=== PATIENT | male | born 1965 | race Caucasian/White ===

== ENCOUNTER 2021-02-26 15:50 | Inpatient (IN) | payer OTHER ==
[2021-02-26 16:11] LABS: Glucose,Whole Blood 154 mg/dL (75-99)
[2021-02-26] MEDS ORDERED: DEXAMETHASONE SOD PHOSPHATE 10 MG/ML 1 ML VIAL IV STA ×2 (16:11→16:12)
[2021-02-26 16:12] LABS: ABG Base Excess -19.5 mmol/L; ABG PCO2 26 mmHg (35-45); ABG PO2 62 mmHg (83-108); ABG TCO2 10 mmol/L (19-24); Allen Test Performed? Yes
[2021-02-26 16:13] LABS: ABG PH 7.16 (7.35-7.45)
[2021-02-26 16:14] LABS: ABG HCO3 9 mmol/L (21-25)
[2021-02-26] MEDS ORDERED: ALBUTEROL NEBULIZED 2.5 MG/3 ML INHALATION STA (16:19)
--- NOTE | 2021-02-26 16:26 | XR ---
EXAMINATION TYPE: XR chest 1V portable DATE OF EXAM: 02/26/2021 COMPARISON: NONE HISTORY: Altered mental status. TECHNIQUE: Single frontal view of the chest is obtained. FINDINGS: There is right greater than left diffuse patchy opacities. There is relative sparing of th e left upper lung. No pleural effusion, or pneumothorax seen. The cardiac silhouette size is within normal limits. The osseous structures are intact. IMPRESSION: Diffuse infiltrates.
[2021-02-26 16:31] LABS: Albumin 3.6 g/dL (3.5-5.0); Calcium 8.5 mg/dL (8.4-10.2); Magnesium 2.9 mg/dL (1.6-2.3); Potassium 4.1 mmol/L (3.5-5.1); Total Bilirubin 3.9 mg/dL (0.2-1.3); Total Protein 6.9 g/dL (6.3-8.2)
[2021-02-26] MEDS ORDERED: NOREPINEPHRINE 32 MG in SODIUM CHLORIDE 0.9% 218 ML IV ONE (16:42)
[2021-02-26 16:45] LABS: MCH 29.6 pg (25.0-35.0); MCV 86.9 fL (80.0-100.0); Mean Platelet Volume 9.1; Platelet Count 497 k/uL (150-450); RBC 5.41 m/uL (4.30-5.90); RDW 13.8 % (11.5-15.5); WBC 2.9 k/uL (3.8-10.6)
[2021-02-26] MEDS ORDERED: ETOMIDATE 2 MG/ML 10 ML VIAL IVP STA (16:56)
[2021-02-26] MEDS ORDERED: ROCURONIUM 10 MG/ML (5 ML VIAL) IV STA (16:57)
[2021-02-26 17:11] LABS: Band Neutrophils % 15 %; Lymphocytes # (M) 0.52 k/uL (1.0-4.8); Metamyelocytes # (M) 0.09 k/uL (0); Metamyelocytes % 3 %; Monocytes # (M) 0.09 k/uL (0-1.0); Neutrophils % (M) 61 %; Nucleated Red Blood Cells 0 /100 WBC (0-0); Rouleaux Present; Total Cells Counted 100
[2021-02-26 17:19] LABS: INR 1.1 (<1.2); Partial Thromboplastin Time 23.5 sec (22.0-30.0); Prothrombin Time 11.8 sec (9.0-12.0)
[2021-02-26] MEDS ORDERED: NALOXONE 0.4 MG/ML 1 ML VIAL IV PRN (17:50)
[2021-02-26] MEDS ORDERED: fentaNYL (PF) 50 MCG/ML 5 ML AMP IVP STA (18:03)
--- NOTE | 2021-02-26 18:05 | XR ---
EXAMINATION TYPE: XR chest 1V portable DATE OF EXAM: 02/26/2021 COMPARISON: Same day. HISTORY: Intubation and line placement. TECHNIQUE: Single frontal view of the chest is obtained. FINDINGS: There is placement of an endotracheal tube terminating 1.4 cm above the yumiko. There is a lso a nasogastric tube coursing below the diaphragm with tip not included in [id number]. There are unchanged right greater than left diffuse opacities. No pleural effusion, or pneumothorax seen. The cardiac silhouette size is stable. The osseous structures are intact. IMPRESSION: Status post support apparatus as above. Low-lying endotracheal tube. Otherwise no significant change.
[2021-02-26 18:22] LABS: Amphetamine Screen,Urine Not Detected (NotDetected); Barbiturate Screen,Urine Not Detected (NotDetected); Benzodiazepines Screen,Urine Not Detected (NotDetected); Cocaine Screen,Urine Not Detected (NotDetected); Methadone Screen, Urine Not Detected (NotDetected); Opiate Screen,Urine Not Detected (NotDetected); Oxycodone Screen, Urine Not Detected (NotDetected); Phencyclidine Screen,Urine Not Detected (NotDetected); Tricyclic Antidepressant,Urine Not Detected (NotDetected); Urn Cannabinoid Scrn Not Detected (NotDetected)
--- NOTE | 2021-02-26 18:25 | ED ---
General Adult HPI - General Chief complaint: Shortness of Breath Stated complaint: hypoxia Source: EMS, RN notes reviewed, old records reviewed Mode of arrival: EMS Limitations: altered mental status - History of Present Illness Initial comments: Patient is a 55-year-old male who presents emergency Department presents emergency Department. Brought in by EMS for shortness of breath. Patient is testing positive for COVID-19 on Sunday. It is currently Sunday. Per EMS, patient's history was primary and they through the patient's also has COVID-19. Patient has been having increased work of breathing over the last 1-2 days. Today he felt tired and was going to take a bath in the bathroom, when he states he laid down on the ground. This is where his found him. He was too weak to stand up so she called EMS. They specifically noted left-sided weakness. He was slurring his speech. Upon arrival, EMS noted that the patient was saturating low was extremity tachypneic. On CPAP, he was saturating in the low 70%'s. He was able to speak words. They brought him to the emergency department for further evaluation over concern for worsening COVID-19 infection versus possible stroke. Patient is unable to provide much information. He is breathing quickly. He states he is short of breath. Denies chest pain. States he feels generalized weak. Denies any sensory deficits. Denies any headache. His no other acute complaint at this time. He is in extreme respiratory distress at this time. - Related Data Home Medications Medication Instructions Recorded Confirmed Acetaminophen [Tylenol] 500 mg PO Q4-6H PRN 02/26/21 02/26/21 Ibuprofen [Motrin Ib] 800 mg PO Q8H PRN 02/26/21 02/26/21 Metoprolol Tartrate [Lopressor] 100 mg PO BID 02/26/21 02/26/21 Allergies Allergy/AdvReac Type Severity Reaction Status Date / Time No Known Allergies Allergy Verified 02/26/21 16:50 Review of Systems ROS Statement: Those systems with pertinent positive or pertinent negative responses have been documented in the HPI. Review of Systems: Difficult to obtain from patient but he is able to convey basic answers. CONST: Denies fever EYES: Denies blurry vision ENT: Denies nasal congestion C/V: Denies Chest pain RESP: Endorses shortness of breath GI: Denies abdominal pain : Denies dysuria SKIN: Denies rash. MSK: Denies joint pain. NEURO: Endorses fatigue ROS Other: All systems not noted in ROS Statement are negative. Past Medical History Additional Past Medical History / Comment(s): hypertension, covid History of Any Multi-Drug Resistant Organisms: Unobtainable Past Surgical History: Unable to Obtain Past Psychological History: No Psychological Hx Reported Smoking Status: Unknown if ever smoked Past Alcohol Use History: Unable to Obtain Past Drug Use History: Unable to Obtain General Exam - General Exam Comments Initial Comments: General: Appears in significant respiratory distress. HEAD: Normal with no signs of head trauma. EYES: PERRLA, EOMI, conjunctiva normal, no discharge. Pupils are 3 mm and equal bilaterally. ENT: Hearing grossly intact, normal oropharynx. Tracheas midline. RESPIRATORY: Patient has bilateral crackles and rhonchi. He is tachypneic. He has retractions. He is in significant respiratory distress. C/V: Cardiac with a regular rhythm. S1 and S2 auscultated. Peripheral pulses are 1+ and intact throughout. Patient is mottled appearance. ABD: Abd is soft, nontender, nondistended EXT: Normal range of motion, no obvious deformity SKIN: Patient is mottled on appearance. It is diffuse over all of his extremities, trunk, torso, head. NEURO: Alert and oriented 2. Patient appears to have left-sided upper extremity and lower extremity weakness. There is no facial droop that is ob vious. It is difficult to obtain a reliable neurological exam. Based on the left-sided weakness, NIH stroke scale is 4, 2 points each for some effort against gravity of the left upper and left lower extremity.Once again, neurological exam is difficult to obtain secondary to his current status. The left-sided weakness is in the obvious neurological deficit at this time. Limitations: altered mental status Course Vital Signs 02/26/21 02/26/21 02/26/21 15:55 15:56 16:22 Pulse Rate 130 H 130 H 135 H Pulse Rate [ 130 H Disposition Clerk ] Respiratory 46 H 40 H Rate Blood Pressure 120/58 120/58 O2 Sat by Pulse 48 L 48 L Oximetry 02/26/21 02/26/21 02/26/21 16:32 17:00 17:20 Pulse Rate 135 H 128 H 124 H Pulse Rate [ Disposition Clerk ] Respiratory 35 H 40 H Rate Blood Pressure 121/84 138/83 O2 Sat by Pulse 84 L 84 L Oximetry 02/26/21 02/26/21 02/26/21 17:37 18:01 19:01 Pulse Rate 133 H 130 H 184 H Pulse Rate [ Disposition Clerk ] Respiratory 32 H 32 H 32 H Rate Blood Pressure 104/66 152/83 97/71 O2 Sat by Pulse 76 L 83 L 58 L Oximetry 02/26/21 02/26/21 02/26/21 20:22 20:24 20:30 Pulse Rate 116 H 116 H 116 H Pulse Rate [ Disposition Clerk ] Respiratory 32 H 32 H 31 H Rate Blood Pressure 114/63 138/83 114/63 O2 Sat by Pulse 73 L 73 L 73 L Oximetry 02/26/21 20:40 Pulse Rate 115 H Pulse Rate [ Disposition Clerk ] Respiratory 25 H Rate Blood Pressure 93/66 O2 Sat by Pulse 73 L Oximetry Procedures - Procedures Initial comment: Synchronized cardioversion was also performed due to unstable atrial fibrillation and RVR is patient was hypoxic at that time. Patient was cardioverted at 100 J. Patient cardioverted successfully to sinus tachycardia. - ABG Interpretation Ph: 7.158 PCO2: 26 PO2: 62 Bicarbonate: 9.2 Interpretation: metabolic acidosis - Central Line Placement Left Femoral Consent Obtained: emergent situation Patient Placed on Monitor/Pulse Ox: Yes Prep: mask, gown, gloves Central Line Prep: Chlorhexidine scrub, sterile drapes applied Local Anesthesia Used: Lidocaine 1% Amount of Anesthesia Used (mls): 3 Ultrasound Used for Placement: Yes Central Line Lumen Inserted: triple Bloods Obtained for Lab: No Central Line Position: good blood return, all ports aspirated, flushed, capped, sutured in place with nylon Dressing Applied: Tegaderm Patient Tolerated Procedure: well Complications: none - Intubation Sedative: Etomidate Mg Given: 20 Paralytic: Rocuronium Mg Given: 100 Laryngoscope: other (Glydescope) Size: 4 ET Tube Size: 7.5 ET Tube Uncuffed: No (cuffed) Tube Secured Depth (cm): 25 Tube Secured Location: lips Tube Placement Confirmation: visualized tube passing through cords, equal breath sounds bilaterally, confirmation by capnometry Patient Tolerated Procedure: well Intubation Complications: none Additional Comments: withdrew ET tube 2cm after CXR. - Pulse Oximetry Interpretation Digit-Finger Initial Pulse Oximetry Readin O2 Sat by Pulse Oximetry: 85 Actions Taken: intubated Medical Decision Making - Medical Decision Making Based on the patient's presentation and physical exam, I do believe he is likely experiencing hypoxic respiratory failure from acute COVID-19 infection. Patient was found to be saturating 48% on the monitor on room air. He was initially started on BiPAP. Action saturations improved to the mid 80%'s. His work of breathing did not improve. He began to get tired out. We ritu cardiac labs as well as infectious laboratory studies. ABG was drawn and sent. One view chest x-ray revealed diffuse opacities in bilateral lung polanco, right versus left. Patient will be connected to continuous cardiac monitoring while he remains in the resuscitation bay. I immediately called the ICU attending, Dr. Cary, to convey the inevitable respiratory decline in this patient. He was in agreement. The plan will be to intubate the patient, place a central line, and hydrate the patient prior to intubation. I spoke with the patient regarding this and he was in agreement this plan. Procedures were implied emergent at this time. I was able to speak with the patient's over the phone who also is COVID-19. I updated her on the patient's status. I also updated the patient's sister on the patient's status over the phone. They both conveyed understanding that the patient is cri tically ill and will be admitted to the ICU following intubation. We will obtain a CT angiogram of the chest as well as a CT head, as the patient does have some strokelike symptoms. We will also like to evaluate for blood clots. Patient was started on 10 mg of IV Decadron as well as an albuterol breathing treatment to the BiPAP. Left femoral central line was placed by myself. Patient tolerated the procedure well. Received this upper procedure note for further details. Patient received a total of 2 L fluid bolus. Pressures remained stable. Remains tachycardic at this time. Patient's s aturations remained in the 80%'s. At this time, the patient is intubated via glydescope intubation. Please see the separate procedure note for further details. He tolerated the procedure well. He was immediately placed on the vent. with RR of 32, TV of 500, PEEP of 15, FiO2 of 100%. Patient's laboratory studies began returning and were remarkable for a lymphopenia, with a white blood cell count of 2.9 and a low number of lymphocytes. Patient's d-dimer is elevated to 6.64. Patient's arterial blood gas revealed a metabolic acidosis and hypoxia. PH is 7.16, patient is hypoxic with a pO2 of 62, pCO2 is 26. Bicarb is decreased and 9. Stenosis of saturations 92%. Patient's laboratory studies are remarkable for an elevated BUN/creatinine in the setting of acute renal failure. Lactic acid is elevated to 11.7, likely causing a metabolic acidosis. Patient has mildly elevated LFTs with an AST of 339 and ALT of 82. Patient's LDH is elevated to 4153. Troponin is elevated to 0.047. UDS is unremarkable. Postintubation chest x-ray revealed the tip of the endotracheal tube may be too deep at this time. Was pulled back 2 cm. At this time, the patient remained stable. He is admitted to the ICU. I was able to speak with Dr. Lockett who was in agreement with the admission. As the patient was stable at this time, we will take him to the computed tomography scan to obtain a CT head as well as CT angios of the chest. As the patient was being brought back from the CT scanner, he became bradycardic. He had a thready pulse at this time. EKG taken at this time revealed a sinus bradycardia with concern for possible lateral ischemia and infarction. He had diffuse ST segment elevations in the lateral precordial leads as well as in lead II and aVF. AVL also had ST segment elevations in as well as lead 1. Patient was becoming more hypotensive. Levophed was started. Patient was administered 0.5 mg of atropine. Shortly after the atropine was administered, patient became pulseless. ACLS protocol was started, chest compressions were started, he was connected to the monitor. One round of CPR was completed including one epinephrine, one bicarb amp, 1 amp of Ca. We obt ained Rosc shortly after this. Cardiac arrest is likely secondary to a respiratory arrest. Post Rosc EKG revealed diffuse ST segment depressions in the lateral precordial leads. Heparin was ordered for the patient. Patient was in A. fib with RVR following return of spontaneous circulation, and this is likely iatrogenic secondary to the epinephrine and the Levophed. These medications were stopped. Patient remained hypoxic with saturations in the mid 60%'s. Heart rate remained in the 180s, occasionally decreasing to the 150s. Blood pressures remained stable with systolics in the low 100s. The decision was made to syncronyze cardiovert the patient as he would not tolerate any form of chemical cardioversion. Therefore patient was syncronyze cardioverted at 100 J, and patient return to normal sinus tachycardia. Oxygen saturations improved following this. Patient's oxygen saturations did improve, however prior to this we did obtain a repeat ABG. This revealed worsening mixed respiratory and metabolic acidosis with pH of 6.78, pO2 of 49, pCO2 of 64, and bicarbonate 9.7. This was obtained with an oxygen saturation of 48%, however patient is currently saturating with a good waveform in the mid 70%'s. Blood gases likely improved from this time, however we will increase the PEEP to improved oxygenation to 18. Once again spoke with Dr. Cary in over the phone and he was in agreement with the plan as above. CT imaging revealed groundglass opacities in bilateral lung polanco. CT head revealed a possible infarct in the right basal ganglia and right parietal lobe, but age is indeterminate. I spoke with the on-call cardiology, Dr. Neves, to inform him of the EKG changes as well as elevated troponin. He was in agreement with the plan of starting heparin. Patient is not stable for cardiac cath at this time. At this time the patient remains critically ill. He was transferred to the ICU in critical condition. Nephrology, neurology, cardiology, infectious disease were all consulted to evaluate the patient. - Lab Data Result diagrams: 02/26/21 21:55 02/26/21 21:55 Lab Results 02/26/21 02/26/21 02/26/21 Range/Units 16:00 16:00 16:00 WBC 2.9 L (3.8-10.6) k/uL RBC 5.41 (4.30-5.90) m/uL Hgb 16.0 (13.0-17.5) gm/dL Hct 47.0 (39.0-53.0) % MCV 86.9 (80.0-100.0) fL MCH 29.6 (25.0-35.0) pg MCHC 34.0 (31.0-37.0) g/dL RDW 13.8 (11.5-15.5) % Plt Count 497 H (150-450) k/uL MPV 9.1 Neutrophils % (Manual) 61 % Band Neuts % (Manual) 15 % Lymphocytes % (Manual) 18 % Monocytes % (Manual) 3 % Metamyelocytes % 3 % Neutrophils # (Manual) 2.20 (1.3-7.7) k/uL Lymphocytes # (Manual) 0.52 L (1.0-4.8) k/uL Monocytes # (Manual) 0.09 (0-1.0) k/uL Metamyelocytes # (Man) 0.09 H (0) k/uL Nucleated RBCs 0 (0-0) /100 WBC Manual Slide Review Performed Rouleaux Present PT 11.8 (9.0-12.0) sec INR 1.1 (<1.2) APTT 23.5 (22.0-30.0) sec D-Dimer 6.64 H (<0.60) mg/L FEU Sample Site ABG pH (7.35-7.45) ABG pCO2 (35-45) mmHg ABG pO2 (83-108) mmHg ABG HCO3 (21-25) mmol/L ABG Total CO2 (19-24) mmol/L ABG O2 Saturation (94-97) % ABG Base Excess mmol/L Chetan Test FiO2 % Sodium 141 (137-145) mmol/L Potassium 4.1 (3.5-5.1) mmol/L Chloride 100 (98-107) mmol/L Carbon Dioxide 10 L (22-30) mmol/L Anion Gap 31 mmol/L BUN 103 H* (9-20) mg/dL Creatinine 10.38 H* (0.66-1.25) mg/dL Est GFR (CKD-EPI)AfAm 6 (>60 ml/min/1.73 sqM) Est GFR (CKD-EPI)NonAf 5 (>60 ml/min/1.73 sqM) Glucose 138 H (74-99) mg/dL POC Glucose (mg/dL) (75-99) mg/dL POC Glu Supervisor [employer] ID Plasma Lactic Acid Jared (0.7-2.0) mmol/L Calcium 8.5 (8.4-10.2) mg/dL Magnesium 2.9 H (1.6-2.3) mg/dL Total Bilirubin 3.9 H (0.2-1.3) mg/dL AST 339 H (17-59) U/L ALT 82 H (4-49) U/L Alkaline Phosphatase 67 (38-126) U/L Lactate Dehydrogenase (313-618) U/L Troponin I (0.000-0.034) ng/mL NT-Pro-B Natriuret Pep pg/mL Total Protein 6.9 (6.3-8.2) g/dL Albumin 3.6 (3.5-5.0) g/dL 02/26/21 02/26/21 02/26/21 Range/Units 16:00 16:00 16:00 WBC (3.8-10.6) k/uL RBC (4.30-5.90) m/uL Hgb (13.0-17.5) gm/dL Hct (39.0-53.0) % MCV (80.0-100.0) fL MCH (25.0-35.0) pg MCHC (31.0-37.0) g/dL RDW (11.5-15.5) % Plt Count (150-450) k/uL MPV Neutrophils % (Manual) % Band Neuts % (Manual) % Lymphocytes % (Manual) % Monocytes % (Manual) % Metamyelocytes % % Neutrophils # (Manual) (1.3-7.7) k/uL Lymphocytes # (Manual) (1.0-4.8) k/uL Monocytes # (Manual) (0-1.0) k/uL Metamyelocytes # (Man) (0) k/uL Nucleated RBCs (0-0) /100 WBC Manual Slide Review Leandro PT (9.0-12.0) sec INR (<1.2) APTT (22.0-30.0) sec D-Dimer (<0.60) mg/L FEU Sample Site ABG pH (7.35-7.45) ABG pCO2 (35-45) mmHg ABG pO2 (83-108) mmHg ABG HCO3 (21-25) mmol/L ABG Total CO2 (19-24) mmol/L ABG O2 Saturation (94-97) % ABG Base Excess mmol/L Chetan Test FiO2 % Sodium (137-145) mmol/L Potassium (3.5-5.1) mmol/L Chloride (98-107) mmol/L Carbon Dioxide (22-30) mmol/L Anion Gap mmol/L BUN (9-20) mg/dL Creatinine (0.66-1.25) mg/dL Est GFR (CKD-EPI)AfAm (>60 ml/min/1.73 sqM) Est GFR (CKD-EPI)NonAf (>60 ml/min/1.73 sqM) Glucose (74-99) mg/dL POC Glucose (mg/dL) 154 H (75-99) mg/dL POC Glu Supervisor [employer] ID Marcy Hammonds Plasma Lactic Acid Jared (0.7-2.0) mmol/L Calcium (8.4-10.2) mg/dL Magnesium (1.6-2.3) mg/dL Total Bilirubin (0.2-1.3) mg/dL AST (17-59) U/L ALT (4-49) U/L Alkaline Phosphatase (38-126) U/L Lactate Dehydrogenase (313-618) U/L Troponin I 0.047 H* (0.000-0.034) ng/mL NT-Pro-B Natriuret Pep 829 pg/mL Total Protein (6.3-8.2) g/dL Albumin (3.5-5.0) g/dL 02/26/21 02/26/21 02/26/21 Range/Units 16:00 16:00 16:03 WBC (3.8-10.6) k/uL RBC (4.30-5.90) m/uL Hgb (13.0-17.5) gm/dL Hct (39.0-53.0) % MCV (80.0-100.0) fL MCH (25.0-35.0) pg MCHC (31.0-37.0) g/dL RDW (11.5-15.5) % Plt Count (150-450) k/uL MPV Neutrophils % (Manual) % Band Neuts % (Manual) % Lymphocytes % (Manual) % Monocytes % (Manual) % Metamyelocytes % % Neutrophils # (Manual) (1.3-7.7) k/uL Lymphocytes # (Manual) (1.0-4.8) k/uL Monocytes # (Manual) (0-1.0) k/uL Metamyelocytes # (Man) (0) k/uL Nucleated RBCs (0-0) /100 WBC Manual Slide Review Rouleaux PT (9.0-12.0) sec INR (<1.2) APTT (22.0-30.0) sec D-Dimer (<0.60) mg/L FEU Sample Site Left Radial ABG pH 7.16 L* (7.35-7.45) ABG pCO2 26 L (35-45) mmHg ABG pO2 62 L (83-108) mmHg ABG HCO3 9 L* (21-25) mmol/L ABG Total CO2 10 L (19-24) mmol/L ABG O2 Saturation 82.0 L (94-97) % ABG Base Excess -19.5 mmol/L Chetan Test Yes FiO2 100 % Sodium (137-145) mmol/L Potassium (3.5-5.1) mmol/L Chloride (98-107) mmol/L Carbon Dioxide (22-30) mmol/L Anion Gap mmol/L BUN (9-20) mg/dL Creatinine (0.66-1.25) mg/dL Est GFR (CKD-EPI)AfAm (>60 ml/min/1.73 sqM) Est GFR (CKD-EPI)NonAf (>60 ml/min/1.73 sqM) Glucose (74-99) mg/dL POC Glucose (mg/dL) (75-99) mg/dL POC Glu Supervisor [employer] ID Plasma Lactic Acid Jared 11.7 H* (0.7-2.0) mmol/L Calcium (8.4-10.2) mg/dL Magnesium (1.6-2.3) mg/dL Total Bilirubin (0.2-1.3) mg/dL AST (17-59) U/L ALT (4-49) U/L Alkaline Phosphatase (38-126) U/L Lactate Dehydrogenase 4153 H (313-618) U/L Troponin I (0.000-0.034) ng/mL NT-Pro-B Natriuret Pep pg/mL Total Protein (6.3-8.2) g/dL Albumin (3.5-5.0) g/dL - EKG Data -: EKG Interpreted by Me EKG Comments: 12-lead Electrocardiogram Interpretation Note EKG was reviewed and interpreted by myself. 12-lead ECG performed at 1600 is interpreted by me as revealing sinus tachycardia at a rate of 129 beats per minute. Left axis deviation, MT interval is 156 ms, QRS duration is 86 seconds, QTC is 442 ms.. Patient has isolated T-wave inversions in lead III. There is a great deal of respiratory variation and artifact secondary patient's tachypnea. The EKG machine reads it as a STEMI, but is being confused by respiratory variation. There are no ST segment depressions or elevations that are observed. There is just isolated T-wave in lead III. This is not a STEMI.. R wave progression across the precordium is somewhat delayed.. By my interpretation this EKG is non-diagnostic for acute ischemia. Repeat EKG after patient was experiencing bradycardia following CT imagin-lead Electrocardiogram Interpretation Note EKG was reviewed and interpreted by myself. 12-lead ECG performed at 1834 is interpreted by me as revealing unspecified bradycardia at a rate of 57 beats per minute. Left axis deviation. Baptist is 140 ms, QTc is 391 ms.. There are diffuse ST segment elevations in lead V5, V6, aVL, 2, aVF. I also depressions in lead V1. An elevations in lead 1... By my interpretation, this EKG is concerning for acute ischemia. Repeat EKG after ROSC: 12-lead Electrocardiogram Interpretation Note EKG was reviewed and interpreted by myself. 12-lead ECG performed at 1844 is interpreted by me as revealing intrafibrillation with RVR at a rate of 146 beats per minute. Quimby is normal. MT interval is unobtainable, QRS duration is 162 ms, QTc is 489 ms.. There are diffuse ST segment depressions in leads V2 through V6.. R wave progression across the precordium was satisfactory. By my interpretation, this EKG is concerning for acute ischemia. This is immediately post ROSC. Critical Care Time Critical Care Time: Yes Total Critical Care Time: 90 Critical Care Time: Upon my evaluation, this patient had a high probability of imminent or life- threatening deterioration due to acute hypoxic respiratory failure secondary to COVID-19 pneumonia, which required my direct attention, intervention, and personal management. I have personally provided 90 minutes of critical care time exclusive of time spent on separately billable procedures. Time includes review of laboratory stephy a, radiology results, discussion with consultants, and monitoring for potential decompensation. Interventions were performed as documented in my note. Disposition Clinical Impression: Cardiopulmonary arrest, COVID-19, Sepsis with acute hypoxic respiratory failure, Acidosis, metabolic, with respiratory acidosis, Elevated d-dimer, Renal failure, acute, Acute respiratory distress syndrome in adult, Airway intubation performed without difficulty, Bradycardia, Atrial fibrillation with RVR, Atrial fibrillation status post cardioversion, Pneumonia, CVA (cerebral vascular accident), Weakness, Lactic acidosis, Hypoxia, Hypercarbia Disposition: ADMITTED IP TO THIS HOSP Condition: Critical
[2021-02-26] MEDS ORDERED: EPINEPHrine 10 ML SYRINGE (0.1 MG/ML) ONE (18:40)
[2021-02-26] MEDS ORDERED: SODIUM CHLORIDE 0.9% 1,000 ML IV ONE (18:40)
[2021-02-26] MEDS ORDERED: ATROPINE SULFATE 0.1 MG/ML 10ML SYRINGE IV STA (18:40)
[2021-02-26] MEDS ORDERED: CALCIUM CHLORIDE 100 MG/ML 10 ML SYRINGE ONE (18:40)
[2021-02-26] MEDS ORDERED: SODIUM BICARB 8.4% 50 ML SYR (1 MEQ/ML) ONE (18:40)
[2021-02-26] MEDS ORDERED: HEPARIN SODIUM 1,000 UN/ML (10ML VL) IV ONE (18:52)
[2021-02-26] MEDS ORDERED: HEPARIN SODIUM 1,000 UN/ML (10ML VL) IV PRN (18:52)
--- NOTE | 2021-02-26 18:59 | CT ---
EXAM: CT brain wo con for TPA CLINICAL HISTORY: Neuro deficit and difficulty breathing. COMPARISON: None TECHNIQUE: Contiguous axial noncontrast images of the brain were obtained. Coronal and sagittal refor mats were generated and reviewed. Automated dose control was used for this exam. FINDINGS: There is no evidence for intracranial hemorrhage, mass effect or midline shift. There is age indeterm inate hypoattenuating area within the right basal ganglia/caudate and questionable of the right poste rior parietal lobe. There is mild white matter disease and parenchymal volume loss. Ventricular size and configuration is within normal limits for degree of parenchymal volume. The paranasal sinuses are clear. The mastoid air cells are clear. No evidence for calvarial fracture. IMPRESSION: Age-indeterminate hypoattenuation within the right basal ganglia and questionable of the right pariet al lobe. Acute infarct cannot be excluded. Follow-up MRI may be obtained as clinically indicated. No acute intracranial hemorrhage.
[2021-02-26] MEDS ORDERED: HEPARIN SOD,PORK IN 0.45% NACL 25,000 UNIT in 0.45% NACL 1 250ML.BAG IV SCH (19:00)
--- NOTE | 2021-02-26 19:12 | CT ---
EXAMINATION TYPE: CT angio chest DATE OF EXAM: 02/26/2021 6:43 PM COMPARISON: Same-day radiographs. HISTORY: SLOANE CT DLP: 1066.8 mGycm Automated exposure control for dose reduction was used. CONTRAST: CTA scan of the thorax is performed with IV Contrast, patient injected with 100 mL of Isovue 370, pul monary embolism protocol. MIP images are created and reviewed. FINDINGS: LUNGS: There are bilateral diffuse patchy groundglass opacities with consolidations, most pronounced in the lower lobes. There is no pleural effusion or pneumothorax seen. Endotracheal and nasogastric tubes are in place. MEDIASTINUM: There is adequate opacification of the pulmonary arteries to the level of the lobar bran ches. No evidence of central pulmonary embolus. There are no greater than 1 cm hilar or mediastinal lymph nodes. No pericardial effusion is seen. OTHER: No additional significant abnormality is seen. IMPRESSION: BILATERAL DIFFUSE GROUNDGLASS OPACITIES AND CONSOLIDATIONS COMPATIBLE WITH ATYPICAL PNEUMONIA, INCLUD ING COVID PNEUMONIA. No acute PE within the limitations of the study.
[2021-02-26 19:24] LABS: ABG Base Excess -25.1 mmol/L; ABG PCO2 64 mmHg (35-45); ABG TCO2 12 mmol/L (19-24); Allen Test Performed? Yes
[2021-02-26 19:25] LABS: ABG HCO3 10 mmol/L (21-25); ABG PH <6.80 (7.35-7.45); ABG PO2 49 mmHg (83-108)
[2021-02-26] MEDS: fentaNYL (PF). 1,000 MCG in SODIUM CHLORIDE 0.9% 80 ML IV SCH (20:14)
[2021-02-26 21:47] LABS: Glucose,Whole Blood 143 mg/dL (75-99)
[2021-02-26 22:43] LABS: ABG Base Excess -19.1 mmol/L; ABG HCO3 13 mmol/L (21-25); ABG PCO2 57 mmHg (35-45); ABG TCO2 15 mmol/L (19-24); Allen Test Performed? Yes
[2021-02-26 22:49] LABS: Albumin 2.6 g/dL (3.5-5.0); Calcium 7.9 mg/dL (8.4-10.2); Potassium 3.9 mmol/L (3.5-5.1); Total Bilirubin 2.8 mg/dL (0.2-1.3); Total Protein 5.2 g/dL (6.3-8.2)
[2021-02-26 22:50] LABS: ABG PH 6.96 (7.35-7.45); ABG PO2 51 mmHg (83-108)
[2021-02-26] MEDS ORDERED: SODIUM BICARB 8.4% 50 ML SYR (1 MEQ/ML) IV STA (23:04)
[2021-02-26 23:05] LABS: HCT 42.8 % (39.0-53.0); HGB 13.6 gm/dL (13.0-17.5); Hypochromasia Slight; MCHC 31.7 g/dL (31.0-37.0); MCV 91.6 fL (80.0-100.0); Platelet Count 472 k/uL (150-450); RBC 4.67 m/uL (4.30-5.90); RDW 14.1 % (11.5-15.5)
[2021-02-26] MEDS ORDERED: SODIUM CHLORIDE 0.9% 1,000 ML IV SCH (23:15)
[2021-02-26 23:36] LABS: Glucose,Whole Blood 124 mg/dL (75-99)
[2021-02-27] MEDS ORDERED: SODIUM CHLORIDE 0.9% 2,000 ML IV ONE (00:09)
[2021-02-27 00:14] LABS: WBC 1.3 k/uL (3.8-10.6)
[2021-02-27] MEDS ORDERED: SODIUM BICARB 8.4% 50 ML SYR (1 MEQ/ML) IV STA (00:23)
[2021-02-27] MEDS ORDERED: DEXTROSE 5% IN WATER 1,000 ML with SODIUM BICARB (1 MEQ/ML) 150 ML IV SCH (01:00)
[2021-02-27 01:30] LABS: ABG Base Excess -10.7 mmol/L; ABG HCO3 20 mmol/L (21-25); ABG Oxygen Saturation 63.5 % (94-97); ABG TCO2 22 mmol/L (19-24); Allen Test Performed? Yes
[2021-02-27 01:39] LABS: Band Neutrophils % 41 %; Metamyelocytes # (M) 0.04 k/uL (0); Metamyelocytes % 3 %; Monocytes # (M) 0.04 k/uL (0-1.0); Neutrophils % (M) 7 %; Nucleated Red Blood Cells 4 /100 WBC (0-0); Total Cells Counted 100
[2021-02-27 01:46] LABS: Anisocytosis (M) Present; Large Platelets Present; Polychromasia Present
[2021-02-27 01:47] LABS: Crenated RBC Present
[2021-02-27 01:56] LABS: ABG PH 7.05 (7.35-7.45)
[2021-02-27 01:57] LABS: ABG PCO2 71 mmHg (35-45); ABG PO2 45 mmHg (83-108)
[2021-02-27] MEDS: fentaNYL (PF). 1,000 MCG in SODIUM CHLORIDE 0.9% 80 ML IV SCH (03:28)
[2021-02-27] MEDS ORDERED: SODIUM CHLORIDE 0.9% 150 ML with VASOPRESSIN 60 UNIT IV SCH ×2 (04:00)
[2021-02-27 04:02] LABS: INR 1.3 (<1.2); Partial Thromboplastin Time 32.2 sec (22.0-30.0)
[2021-02-27 04:15] LABS: Albumin 2.5 g/dL (3.5-5.0); Potassium 4.5 mmol/L (3.5-5.1); Total Protein 5.1 g/dL (6.3-8.2)
[2021-02-27 04:27] LABS: Calcium 7.3 mg/dL (8.4-10.2); Total Bilirubin 2.9 mg/dL (0.2-1.3)
[2021-02-27 05:02] VITALS: BP 152/44; PULSE 0; RESP 32
[2021-02-27 05:31] LABS: Allen Test Performed? Yes
[2021-02-27 05:32] LABS: ABG PCO2 58 mmHg (35-45); ABG PH 6.93 (7.35-7.45)
[2021-02-27 05:33] LABS: ABG HCO3 12 mmol/L (21-25); ABG PO2 59 mmHg (83-108); ABG TCO2 14 mmol/L (19-24)
[2021-02-27 05:34] LABS: ABG Base Excess -20.5 mmol/L
--- NOTE | 2021-02-27 07:42 | P.CNPUL ---
History of Present Illness Consult date: 02/27/21 Reason for consult: pneumonia History of present illness: 55-year-old male patient who presented with acute hypoxic respiratory failure, severe metabolic acidosis, severe respiratory acidosis, acute kidney injury. I was involved in the patient's care during this current hospitalization. In summary, the patient came into the emergency department at around 6 PM with severe shortness of breath. The patient was diagnosed being COVID 19 positive on 02/21/2021. This testing was done on outpatient basis. His is also possible COVID-19. Initially placed on BiPAP in the emergency department. While on BiPAP, the patient continued to be tachypneic, hypoxic and his pulse ox was in the mid 50s. His skin was mottled and he was an obvious aspirate distress. I made recommendations for the emergency department to intubate this patient and place him on a mechanical ventilator. While in the ED, the patient had a triple lumen catheter established patient has a right femoral vein. He was given a total of 3 L of bolus of IV fluids. Following that, he was intubated and placed on a mechanical ventilator. Further workup in the emergenc y department included a CT angiogram and a CAT scan of the brain. CAT scan of the brain was negative. CT angiogram showed extensive bilateral pulmonary infiltrates with significant consolidations involving the lung bases bilaterally. Post intubation, the patient became quite hypotensive, required pressors. While on the Route back from the CAT scan department, the patient also coded. He was bradycardic. He was given atropine and epinephrine and CPR and calcium and bicarb pushes. He did recover and he had a tetanus within circulation. Nevertheless, the blood is were done at that time showed severe metabolic and respiratory acidosis. Note that his pH was 6.8 with a pCO2 of 64 and pO2 of 49 and immediately post intubation. Subsequent blood gases were not much different as the patient continued to be severely acidotic with monthly metabolic with some respiratory acidosis. His lactic acid level was as high as 11.7. There was some liver dysfunction. One was a 0.04. Urine drug screen was negative. His white cell count was at 2.9 with a platelet count of 497. Correlation profile was normal with a d-dimer of 6.6. The patient got transferred to the intensive care unit at around 11 PM.. Further management in the intensive care unit revealed that the patient was still quite hypotensive, severely acidotic, hemodynamically unstable, and unresponsive essentially unresponsive. He was not this point any painful stimulation. In fact he did not require much of sedation. He was kept on fentanyl at 0.8 mcg/kg per minute. No propofol was used. He was essentially not following any commands. Not responding to any painful stimulation. He was quite flaccid. Resuscitation was continued with fluids and pressors. Ultimately, the patient had difficulties in oxygenation. We did increase the PEEP up to 22 And tidal volume at 450 with a respiratory rate of 32 and FiO2 of 100%. Repeat blood gases showed that the patient's pO2 was only at 45. At that point, the patient was placed in a prone body position. Oxygenation improved marginally. Nevertheless the patient mirna nued to be severely acidotic. During the course of his treatment he was given several doses of sodium bicarbonate without any improvement. He was placed on a bicarb drip. IV fluid resuscitation was continued. Subsequently, he had another it was present hypotension and cardiac arrest and went into a PEA rhythm at around 4 or 20 4:20 AM. During the course of this treatment, the family has been contacted on multiple occasions, and found of this for condition poor status. 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 This resulted after the patient at around 4:20 AM. Review of Systems ROS unobtainable: due to mental status Past Medical History Past Medical History: Hypertension Additional Past Medical History / Comment(s): hypertension, covid History of Any Multi-Drug Resistant Organisms: Unobtainable Past Surgical History: Unable to Obtain Past Anesthesia/Blood Transfusion Reactions: Unable to Obtain Past Psychological History: No Psychological Hx Reported Smoking Status: Unknown if ever smoked Past Alcohol Use History: Unable to Obtain Past Drug Use History: Unable to Obtain Medications and Allergies Home Medications Medication Instructions Recorded Confirmed Type Acetaminophen [Tylenol] 500 mg PO Q4-6H PRN 02/26/21 02/26/21 History Ibuprofen [Motrin Ib] 800 mg PO Q8H PRN 02/26/21 02/26/21 History Metoprolol Tartrate [Lopressor] 100 mg PO BID 02/26/21 02/26/21 History Allergies Allergy/AdvReac Type Severity Reaction Status Date / Time No Known Allergies Allergy Verified 02/26/21 16:50 Physical Exam Vitals: Vital Signs Pulse Pulse Resp BP Pulse Ox Pulse Ox 02/27/21 04:50 152/44 02/27/21 04:40 0 L 152/44 02/27/21 04:20 117 H 32 H 02/27/21 04:10 118 H 26 H 02/27/21 04:00 115 H 21 02/27/21 03:50 115 H 32 H 02/27/21 03:40 114 H 32 H 81 L 02/27/21 03:30 114 H 26 H 91/32 02/27/21 03:20 117 H 32 H 91/32 02/27/21 03:10 118 H 32 H 73 L 02/27/21 03:00 124 H 32 H 02/27/21 02:50 125 H 32 H 02/27/21 02:40 126 H 31 H 02/27/21 02:30 121 H 32 H 76 L 02/27/21 02:20 123 H 32 H 75 L 02/27/21 02:10 125 H 32 H 77 L 02/27/21 02:00 126 H 32 H 79 L 02/27/21 01:50 128 H 32 H 02/27/21 01:40 124 H 32 H 02/27/21 01:30 125 H 32 H 02/27/21 01:20 122 H 32 H 106/44 02/27/21 01:10 122 H 32 H 106/44 02/27/21 01:00 123 H 32 H 94/45 76 L 02/27/21 00:50 124 H 32 H 94/45 77 L 02/27/21 00:46 85 L 02/27/21 00:40 122 H 32 H 116/66 72 L 02/27/21 00:30 124 H 32 H 87/63 75 L 02/27/21 00:20 118 H 32 H 66/47 72 L 02/27/21 00:10 117 H 33 H 80/70 68 L 02/27/21 00:00 117 H 32 H 81/36 68 L 02/26/21 23:54 118 H 32 H 81/36 68 L 02/26/21 23:50 118 H 31 H 81/36 89 L 02/26/21 23:40 123 H 32 H 118/65 02/26/21 23:30 116 H 32 H 94/62 02/26/21 23:20 118 H 25 H 83/52 02/26/21 23:10 117 H 32 H 94/58 70 L 02/26/21 23:00 118 H 32 H 107/45 74 L 02/26/21 22:50 117 H 32 H 73 L 02/26/21 22:40 116 H 32 H 72 L 02/26/21 22:30 115 H 32 H 90/58 75 L 02/26/21 22:20 113 H 32 H 102/33 73 L 02/26/21 22:10 112 H 32 H 83/49 72 L 02/26/21 22:00 113 H 32 H 78/28 02/26/21 21:50 98/59 02/26/21 21:40 112 H 32 H 98/59 72 L 02/26/21 21:30 114 H 30 H 105/57 72 L 02/26/21 21:20 114 H 26 H 105/57 72 L 02/26/21 21:10 114 H 33 H 92/59 73 L 02/26/21 21:00 114 H 32 H 96/60 73 L 02/26/21 20:50 115 H 25 H 96/60 73 L 02/26/21 20:40 115 H 25 H 93/66 73 L 02/26/21 20:30 116 H 31 H 114/63 73 L 02/26/21 20:24 116 H 32 H 138/83 73 L 02/26/21 20:22 116 H 32 H 114/63 73 L 02/26/21 19:01 184 H 32 H 97/71 58 L 02/26/21 18:01 130 H 32 H 152/83 83 L 02/26/21 17:37 133 H 32 H 104/66 76 L 02/26/21 17:20 124 H 40 H 138/83 84 L 02/26/21 17:00 128 H 35 H 121/84 84 L 02/26/21 16:32 135 H 02/26/21 16:22 135 H 02/26/21 15:56 130 H 40 H 120/58 48 L 02/26/21 15:55 130 H 130 H 46 H 120/58 48 L Intake and Output 02/26/21 02/27/21 02/27/21 22:59 06:59 14:59 Intake Total 6.985 528.160 Output Total 170 0 Balance -163.015 528.160 Intake: IV 425 Dextrose 5% in Water 1, 225 000 ml @ 75 mls/hr IV . [id number] ROYN with Sodium Bicarb (1 Meq/ml) 150 ml Rx#:[id number] Sodium Chloride 0.9% 1, 200 000 ml @ 100 mls/hr IV . Q10H RONY Rx#:[id number] Intake, IV Titration 6.985 103.160 Amount Norepinephrine 32 mg In 6.985 29.669 Sodium Chloride 0.9% 218 ml @ 0.05 MCG/KG/MIN 2. 977 mls/hr IV .Q24H ONE Rx#:[id number] fentaNYL (PF). 1,000 mcg 73.491 In Sodium Chloride 0.9% 80 ml @ Per Protocol IV . Q0M RONY Rx#:[id number] Output: Urine 170 0 Uretheral (Perry) 150 Other: Voiding Method Indwelling Catheter Weight 127.006 kg ABP, PAP, CO, CI - Last 8 Hours Arterial Blood Pressure 38/18 Arterial Blood Pressure 95/65 Arterial Blood Pressure 57/41 Arterial Blood Pressure 56/43 Arterial Blood Pressure 59/43 Arterial Blood Pressure 63/46 Arterial Blood Pressure 69/47 Arterial Blood Pressure 69/49 Arterial Blood Pressure 67/51 Arterial Blood Pressure 70/52 Arterial Blood Pressure 83/56 Arterial Blood Pressure 85/53 Arterial Blood Pressure 71/48 Arterial Blood Pressure 60/43 Arterial Blood Pressure 68/45 Arterial Blood Pressure 75/47 Arterial Blood Pressure 84/47 Arterial Blood Pressure 77/43 Arterial Blood Pressure 86/44 Arterial Blood Pressure 73/40 Results - Laboratory Findings CBC and BMP: 02/26/21 21:55 02/27/21 03:30 ABG ABG pH 6.93 (7.35-7.45) L* 02/27/21 04:05 ABG pCO2 58 mmHg (35-45) H 02/27/21 04:05 ABG pO2 59 mmHg (83-108) L* 02/27/21 04:05 ABG O2 Saturation 75.0 % (94-97) L 02/27/21 04:05 PT/INR, D-dimer PT 13.0 sec (9.0-12.0) H 02/27/21 03:30 INR 1.3 (<1.2) H 02/27/21 03:30 D-Dimer 6.64 mg/L FEU (<0.60) H 02/26/21 16:00 Abnormal lab findings: Abnormal Labs 02/26/21 02/26/21 02/26/21 16:00 16:00 16:00 WBC 2.9 L Plt Count 497 H Neutrophils # (Manual) Lymphocytes # (Manual) 0.52 L Metamyelocytes # (Man) 0.09 H Nucleated RBCs PT INR APTT D-Dimer 6.64 H ABG pH ABG pCO2 ABG pO2 ABG HCO3 ABG Total CO2 ABG O2 Saturation Carbon Dioxide 10 L BUN 103 H* Creatinine 10.38 H* Glucose 138 H POC Glucose (mg/dL) Plasma Lactic Acid Jared Calcium Magnesium 2.9 H Total Bilirubin 3.9 H AST 339 H ALT 82 H Lactate Dehydrogenase Troponin I Total Protein Albumin 02/26/21 02/26/21 02/26/21 16:00 16:00 16:00 WBC Plt Count Neutrophils # (Manual) Lymphocytes # (Manual) Metamyelocytes # (Man) Nucleated RBCs PT INR APTT D-Dimer ABG pH ABG pCO2 ABG pO2 ABG HCO3 ABG Total CO2 ABG O2 Saturation Carbon Dioxide BUN Creatinine Glucose POC Glucose (mg/dL) 154 H Plasma Lactic Acid Jared 11.7 H* Calcium Magnesium Total Bilirubin AST ALT Lactate Dehydrogenase Troponin I 0.047 H* Total Protein Albumin 02/26/21 02/26/21 02/26/21 16:00 16:03 19:21 WBC Plt Count Neutrophils # (Manual) Lymphocytes # (Manual) Metamyelocytes # (Man) Nucleated RBCs PT INR APTT D-Dimer ABG pH 7.16 L* <6.80 L* ABG pCO2 26 L 64 H ABG pO2 62 L 49 L* ABG HCO3 9 L* 10 L* ABG Total CO2 10 L 12 L ABG O2 Saturation 82.0 L 48.0 L Carbon Dioxide BUN Creatinine Glucose POC Glucose (mg/dL) Plasma Lactic Acid Jared Calcium Magnesium Total Bilirubin AST ALT Lactate Dehydrogenase 4153 H Troponin I Total Protein Albumin 02/26/21 02/26/21 02/26/21 20:42 21:44 21:55 WBC 1.3 L* Plt Count 472 H Neutrophils # (Manual) 0.60 L Lymphocytes # (Manual) 0.60 L Metamyelocytes # (Man) 0.04 H Nucleated RBCs 4 H PT INR APTT D-Dimer ABG pH ABG pCO2 ABG pO2 ABG HCO3 ABG Total CO2 ABG O2 Saturation Carbon Dioxide BUN Creatinine Glucose POC Glucose (mg/dL) 143 H Plasma Lactic Acid Jared 11.3 H* Calcium Magnesium Total Bilirubin AST ALT Lactate Dehydrogenase Troponin I Total Protein Albumin 02/26/21 02/26/21 02/26/21 21:55 21:55 22:40 WBC Plt Count Neutrophils # (Manual) Lymphocytes # (Manual) Metamyelocytes # (Man) Nucleated RBCs PT INR APTT D-Dimer ABG pH 6.96 L* ABG pCO2 57 H ABG pO2 51 L* ABG HCO3 13 L ABG Total CO2 15 L ABG O2 Saturation 65.0 L Carbon Dioxide 13 L BUN 99 H Creatinine 10.23 H* Glucose 148 H POC Glucose (mg/dL) Plasma Lactic Acid Jared 10.4 H* Calcium 7.9 L Magnesium Total Bilirubin 2.8 H AST 544 H ALT 127 H Lactate Dehydrogenase Troponin I Total Protein 5.2 L Albumin 2.6 L 02/26/21 02/27/21 02/27/21 23:34 01:25 03:30 WBC Plt Count Neutrophils # (Manual) Lymphocytes # (Manual) Metamyelocytes # (Man) Nucleated RBCs PT 13.0 H INR 1.3 H APTT 32.2 H D-Dimer ABG pH 7.05 L* ABG pCO2 71 H* ABG pO2 45 L* ABG HCO3 20 L ABG Total CO2 ABG O2 Saturation 63.5 L Carbon Dioxide BUN Creatinine Glucose POC Glucose (mg/dL) 124 H Plasma Lactic Acid Jared Calcium Magnesium Total Bilirubin AST ALT Lactate Dehydrogenase Troponin I Total Protein Albumin 02/27/21 02/27/21 02/27/21 03:30 03:30 04:05 WBC Plt Count Neutrophils # (Manual) Lymphocytes # (Manual) Metamyelocytes # (Man) Nucleated RBCs PT INR APTT D-Dimer ABG pH 6.93 L* ABG pCO2 58 H ABG pO2 59 L* ABG HCO3 12 L ABG Total CO2 14 L ABG O2 Saturation 75.0 L Carbon Dioxide 13 L BUN 104 H* Creatinine 11.05 H* Glucose 55 L POC Glucose (mg/dL) Plasma Lactic Acid Jared 12.7 H* Calcium 7.3 L Magnesium Total Bilirubin 2.9 H AST 725 H ALT 145 H Lactate Dehydrogenase Troponin I Total Protein 5.1 L Albumin 2.5 L - Diagnostic Findings Chest x-ray: image reviewed Assessment and Plan Plan: 1 acute COVID-19 related infection/pneumonia 2 acute bilateral pneumonia probably with a superinfection knowing that the patient's subsequent blood cultures resulted to gram-positive cocci in chains. 3 acute hypoxic respiratory failure 4 acute shock, predominantly septic shock with severe hypotension, nonresponsive to pressors which was given in the form of norepinephrine infusion and vasopressin. The patient was aggressively resuscitated IV fluids. 5 severe metabolic acidosis, lactic acidosis 6 leukopenia 7 acute kidney injury 8 Cardiac arrest , a witnessed event and the emergency probably due to severe respiratory metabolic acidosis 9 history of hypertension 10 obesity with a BMI of 39.1 Plan Patient failed resuscitation efforts. The patient was critically ill with multisystem organ failure. Probably started off with COVID-19 related pneumonia and there was a superinfection with secondary septic shock and multisystem organ failure. Patient within 12 hours of admission.
--- NOTE | 2021-02-27 16:06 | P.HPIM ---
History of Present Illness H&P Date: 02/26/21 Chief Complaint: Short of breath History of presenting complaint: This is a 55-year-old patient was brought to the ER. The EMS. Patient had tested positive for COVID. Patient was not vaccinated.. Patient's is also positive for COVID-19. Patient for last 2 days patient getting increasingly short of breath. Today he felt tired: Take a bath the bathroom. He laid down the ground as he is feeling very tired. Patient's found him . Was too weak to stand up so she called EMS. There is some questionable left-sided weakness and slurring of speech. Patient was found to be very tachypneic and was saturating low 70%. 0 to speak some words. Patient himself and the ER was not able to provide much information. Breathing without the rapid. No chest pain. Denies weakness. No headaches. Patient was in respiratory distress. Was intubated. Moved to ICU. Patient drips include IV heparin, fentanyl. Intubated. FiO2 100 the PEEP of 18. Review of systems: Patient intubated Past medical history to include: Hypertension Social history: Unable to obtain. Family history: Unable to obtain Physical examination: VITAL SIGNS: [1:30, 32, 97/71, 83% on the ventilator GENERAL: [BMI 39.1, laying in bed, intubated]. Rest of exam as per nursing and ER notes INVESTIGATIONS, reviewed in the clinical context: WBC 2.9 hemoglobin 16 platelets 497 ABG: PH 7.16 pCO2 26 oxygen saturation 82 Potassium 4.1 creatinine 103 creatinine 10.3 lactic acid 1.7 total bilirubin 3.9 AST 339 ALT 82 Troponin I 0.047 Urine drug screen: Negative EKG tracing personally reviewed by me-normal sinus rhythm, poor baseline Chest x-ray film personally reviewed by me-infiltrates more on the right, to the left Computed tomography scan of the brain: Age-indeterminate hyperattenuation within the right basal ganglia and questionable of the right parietal lobe CT angiogram chest: Bilateral diffuse groundglass opacities. And consolidation. Assessment and plan: -This is a patient was diagnosed with COVID 19 pneumonia. A few days ago. She did not want to take the vaccine.Symptoms are progressively worse. Pulmonary and ID consulted -Acute severe hypoxic respiratory failure from COVID 19 pneumonia Ventilator assisted -Obesity BMI 39.1 -Severe metabolic acidosis combined with respiratory acidosis -Acute severe kidney injury likely ATN from sepsis and prerenal Nephrology consulted. IV fluids. -Troponin leak due to hemodynamic mismatch. No obvious clinical evidence of acute: He syndrome Patient has received IV Decadron, he will fed, was intubated in the ER. Placed on IV heparin. Given sodium bicarbonate. Consultations were placed to nephrology, manager exchange, ID. Prognosis guarded. Past Medical History Additional Past Medical History / Comment(s): hypertension, covid History of Any Multi-Drug Resistant Organisms: Unobtainable Past Surgical History: Unable to Obtain Past Psychological History: No Psychological Hx Reported Smoking Status: Unknown if ever smoked Past Alcohol Use History: Unable to Obtain Past Drug Use History: Unable to Obtain Medications and Allergies Home Medications Medication Instructions Recorded Confirmed Type Acetaminophen [Tylenol] 500 mg PO Q4-6H PRN 02/26/21 02/26/21 History Ibuprofen [Motrin Ib] 800 mg PO Q8H PRN 02/26/21 02/26/21 History Metoprolol Tartrate [Lopressor] 100 mg PO BID 02/26/21 02/26/21 History Allergies Allergy/AdvReac Type Severity Reaction Status Date / Time No Known Allergies Allergy Verified 02/26/21 16:50 Physical Exam Vitals: Vital Signs Pulse Pulse Resp BP Pulse Ox 02/26/21 22:10 112 H 32 H 83/49 72 L 02/26/21 22:00 113 H 32 H 78/28 02/26/21 21:50 98/59 02/26/21 21:40 112 H 32 H 98/59 72 L 02/26/21 21:30 114 H 30 H 105/57 72 L 02/26/21 21:20 114 H 26 H 105/57 72 L 02/26/21 21:10 114 H 33 H 92/59 73 L 02/26/21 21:00 114 H 32 H 96/60 73 L 02/26/21 20:50 115 H 25 H 96/60 73 L 02/26/21 20:40 115 H 25 H 93/66 73 L 02/26/21 20:30 116 H 31 H 114/63 73 L 02/26/21 20:24 116 H 32 H 138/83 73 L 02/26/21 20:22 116 H 32 H 114/63 73 L 02/26/21 19:01 184 H 32 H 97/71 58 L 02/26/21 18:01 130 H 32 H 152/83 83 L 02/26/21 17:37 133 H 32 H 104/66 76 L 02/26/21 17:20 124 H 40 H 138/83 84 L 02/26/21 17:00 128 H 35 H 121/84 84 L 02/26/21 16:32 135 H 02/26/21 16:22 135 H 02/26/21 15:56 130 H 40 H 120/58 48 L 02/26/21 15:55 130 H 130 H 46 H 120/58 48 L Intake and Output 02/26/21 02/26/21 02/26/21 06:59 14:59 22:59 Intake Total 6.985 Output Total 170 Balance -163.015 Intake: Intake, IV Titration 6.985 Amount Norepinephrine 32 mg In 6.985 Sodium Chloride 0.9% 218 ml @ 0.05 MCG/KG/MIN 2. 977 mls/hr IV .Q24H ONE Rx#:[id number] Output: Urine 170 Uretheral (Perry) 150 Other: Weight 127.006 kg Results CBC & Chem 7: 02/26/21 21:55 02/27/21 03:30 Labs: Abnormal Lab Results - Last 24 Hours (Table) 02/26/21 02/26/21 02/26/21 Range/Units 16:00 16:00 16:00 WBC 2.9 L (3.8-10.6) k/uL Plt Count 497 H (150-450) k/uL Lymphocytes # (Manual) 0.52 L (1.0-4.8) k/uL Metamyelocytes # (Man) 0.09 H (0) k/uL D-Dimer 6.64 H (<0.60) mg/L FEU ABG pH (7.35-7.45) ABG pCO2 (35-45) mmHg ABG pO2 (83-108) mmHg ABG HCO3 (21-25) mmol/L ABG Total CO2 (19-24) mmol/L ABG O2 Saturation (94-97) % Carbon Dioxide 10 L (22-30) mmol/L BUN 103 H* (9-20) mg/dL Creatinine 10.38 H* (0.66-1.25) mg/dL Glucose 138 H (74-99) mg/dL POC Glucose (mg/dL) (75-99) mg/dL Plasma Lactic Acid Jared (0.7-2.0) mmol/L Magnesium 2.9 H (1.6-2.3) mg/dL Total Bilirubin 3.9 H (0.2-1.3) mg/dL AST 339 H (17-59) U/L ALT 82 H (4-49) U/L Lactate Dehydrogenase (313-618) U/L Troponin I (0.000-0.034) ng/mL 02/26/21 02/26/21 02/26/21 Range/Units 16:00 16:00 16:00 WBC (3.8-10.6) k/uL Plt Count (150-450) k/uL Lymphocytes # (Manual) (1.0-4.8) k/uL Metamyelocytes # (Man) (0) k/uL D-Dimer (<0.60) mg/L FEU ABG pH (7.35-7.45) ABG pCO2 (35-45) mmHg ABG pO2 (83-108) mmHg ABG HCO3 (21-25) mmol/L ABG Total CO2 (19-24) mmol/L ABG O2 Saturation (94-97) % Carbon Dioxide (22-30) mmol/L BUN (9-20) mg/dL Creatinine (0.66-1.25) mg/dL Glucose (74-99) mg/dL POC Glucose (mg/dL) 154 H (75-99) mg/dL Plasma Lactic Acid Jared 11.7 H* (0.7-2.0) mmol/L Magnesium (1.6-2.3) mg/dL Total Bilirubin (0.2-1.3) mg/dL AST (17-59) U/L ALT (4-49) U/L Lactate Dehydrogenase (313-618) U/L Troponin I 0.047 H* (0.000-0.034) ng/mL 02/26/21 02/26/21 02/26/21 Range/Units 16:00 16:03 19:21 WBC (3.8-10.6) k/uL Plt Count (150-450) k/uL Lymphocytes # (Manual) (1.0-4.8) k/uL Metamyelocytes # (Man) (0) k/uL D-Dimer (<0.60) mg/L FEU ABG pH 7.16 L* <6.80 L* (7.35-7.45) ABG pCO2 26 L 64 H (35-45) mmHg ABG pO2 62 L 49 L* (83-108) mmHg ABG HCO3 9 L* 10 L* (21-25) mmol/L ABG Total CO2 10 L 12 L (19-24) mmol/L ABG O2 Saturation 82.0 L 48.0 L (94-97) % Carbon Dioxide (22-30) mmol/L BUN (9-20) mg/dL Creatinine (0.66-1.25) mg/dL Glucose (74-99) mg/dL POC Glucose (mg/dL) (75-99) mg/dL Plasma Lactic Acid Jared (0.7-2.0) mmol/L Magnesium (1.6-2.3) mg/dL Total Bilirubin (0.2-1.3) mg/dL AST (17-59) U/L ALT (4-49) U/L Lactate Dehydrogenase 4153 H (313-618) U/L Troponin I (0.000-0.034) ng/mL 02/26/21 02/26/21 Range/Units 20:42 21:44 WBC (3.8-10.6) k/uL Plt Count (150-450) k/uL Lymphocytes # (Manual) (1.0-4.8) k/uL Metamyelocytes # (Man) (0) k/uL D-Dimer (<0.60) mg/L FEU ABG pH (7.35-7.45) ABG pCO2 (35-45) mmHg ABG pO2 (83-108) mmHg ABG HCO3 (21-25) mmol/L ABG Total CO2 (19-24) mmol/L ABG O2 Saturation (94-97) % Carbon Dioxide (22-30) mmol/L BUN (9-20) mg/dL Creatinine (0.66-1.25) mg/dL Glucose (74-99) mg/dL POC Glucose (mg/dL) 143 H (75-99) mg/dL Plasma Lactic Acid Jared 11.3 H* (0.7-2.0) mmol/L Magnesium (1.6-2.3) mg/dL Total Bilirubin (0.2-1.3) mg/dL AST (17-59) U/L ALT (4-49) U/L Lactate Dehydrogenase (313-618) U/L Troponin I (0.000-0.034) ng/mL
--- NOTE | 2021-02-27 16:09 | P.DS ---
Providers Date of admission: 02/26/21 17:50 Expected date of discharge: 02/27/21 Attending physician: Fabian Lockett Consults: 02/26/21 16:18 Consult Physician Urgent Consulting Provider: Madison Cary Consult Reason/Comments: covid 19, hypoxic respiratory failure Do you want consulting provider notified?: Already Contacted 02/26/21 17:50 Consult Physician Stat Consulting Provider: Madison Cary Consult Reason/Comments: covid 19, hypoxic respiratory failure Do you want consulting provider notified?: Already Contacted 02/26/21 18:02 Consult Physician Routine Consulting Provider: Sintia Chilel Consult Reason/Comments: COVID 19 infection, hypoxic respiratory failure Do you want consulting provider notified?: Yes, Notify in am Consult Physician Routine Consulting Provider: Sincere Mcbride Consult Reason/Comments: renal failure, covid 19 infection Do you want consulting provider notified?: Yes, Notify in am 02/26/21 18:56 Consult Physician Routine Consulting Provider: Aren Neves Consult Reason/Comments: elevated troponin, cardiac arrest Do you want consulting provider notified?: Already Contacted 02/26/21 19:58 Consult Physician Routine Consulting Provider: Fletcher Reeder Consult Reason/Comments: possible CVA Do you want consulting provider notified?: Yes, Notify in am Primary care physician: [facility] Course: Chief Complaint: Short of breath History of presenting complaint: This is a 55-year-old patient was brought to the ER. The EMS. Patient had tested positive for COVID. Patient was not vaccinated.. Patient's is also positive for COVID-19. Patient for last 2 days patient getting increasingly short of breath. Today he felt tired: Take a bath the bathroom. He laid down the ground as he is feeling very tired. Patient's found him . Was too weak to stand up so she called EMS. There is some questionable left-sided weakness and slurring of speech. Patient was found to be very tachypneic and was saturating low 70%. 0 to speak some words. Patient himself and the ER was not able to provide much information. Breathing without the rapid. No chest pain. Denies weakness. No headaches. Patient was in respiratory distress. Was intubated. Moved to ICU. Patient drips include IV heparin, fentanyl. Intubated. FiO2 100 the PEEP of 18. Patient continued to do poorly in the ICU. Consultations were placed to nephrology, ID, gas meter repairer. February 27: After patient patient's blood cultures reported Streptococcus pneumoniae. Early hours of today patient succumbed and Consultation: Dr. Chilel from ID Nephrology Dr. Cary gas meter repairer Review of systems: Patient intubated Past medical history to include: Hypertension Social history: Unable to obtain. Family history: Unable to obtain INVESTIGATIONS, reviewed in the clinical context: WBC 2.9 hemoglobin 16 platelets 497 ABG: PH 7.16 pCO2 26 oxygen saturation 82 Potassium 4.1 creatinine 103 creatinine 10.3 lactic acid 1.7 total bilirubin 3.9 AST 339 ALT 82 Troponin I 0.047 Urine drug screen: Negative EKG tracing personally reviewed by me-normal sinus rhythm, poor baseline Chest x-ray film personally reviewed by me-infiltrates more on the right, to the left Computed tomography scan of the brain: Age-indeterminate hyperattenuation within the right basal ganglia and questionable of the right parietal lobe CT angiogram chest: Bilateral diffuse groundglass opacities. And consolidation. Cause of : COVID-19 Assessment and plan: -This is a patient was diagnosed with COVID 19 pneumonia. A few days ago. She did not want to take the vaccine.Symptoms are progressively worse. Pulmonary and ID consulted -Septic shock -Severe sepsis from COVID 19 pneumonia, Streptococcus pneumoniae positive blood culture -Acute severe hypoxic respiratory failure from COVID 19 pneumonia Ventilator assisted -Obesity BMI 39.1 -Severe metabolic acidosis combined with respiratory acidosis -Acute severe kidney injury likely ATN from sepsis and prerenal Nephrology consulted. IV fluids. -Troponin leak due to hemodynamic mismatch. No obvious clinical evidence of acute: He syndrome Disposition: Patient Plan - Discharge Summary Discharge Rx Participant: Yes New Discharge Prescriptions: No Action Acetaminophen [Tylenol] 500 mg PO Q4-6H PRN PRN Reason: Pain Or Fever > 100.5 Metoprolol Tartrate [Lopressor] 100 mg PO BID Ibuprofen [Motrin Ib] 800 mg PO Q8H PRN PRN Reason: Pain Or Fever > 100.5 Discharge Medication List Acetaminophen [Tylenol] 500 mg PO Q4-6H PRN 02/26/21 [History] Ibuprofen [Motrin Ib] 800 mg PO Q8H PRN 02/26/21 [History] Metoprolol Tartrate [Lopressor] 100 mg PO BID 02/26/21 [History] Follow up Appointment(s)/Referral(s): Antonino Fisher MD [Primary Care Provider] - 1-2 days Discharge Disposition: - Preliminary Cause of Preliminary Cause of : COVID-19
--- NOTE | 2021-02-28 19:19 | P.EN ---
delayed charting Code Blue Note please refer to paper charting for exact sequence of events and meds pushed during the code. patient went into cardiopulmonary arrest and was coded for about 20 minutes. monitor showing PEA arrest, patient was given multiple rounds of epi, bicarb. with no improvement defib shock was delivered twice toward the end for fine Vfib. amiodarone 300 mg ordered but not given as he again had PEA. CPR effort was stopped at that point, as this is patient second cardiopulmonary arrest, along with having severe COVID infection requiring mechanical ventilation with multiorgan failure. outcomes would be very poor due to prolonged anoxic brain injury (patient was severely hypoxic during a prolonged ride by EMS to the hospital). patient was pronounced. family updated by myself RN to update primary team and ICU attending
--- NOTE | 2021-03-03 14:16 | CDI ---
Documentation Clarification Form Date: 03/03/2021 02:09:43 PM From: Jennifer Salgado RN, CCDS Admit Date: 02/26/2021 05:50:00 PM Patient Name: Hernandez Ordoñez Visit Number: [id number] Discharge Date: 02/27/2021 09:08:00 AM ATTENTION: The Clinical Documentation Specialists (CDI) and [facility] Coding Staff appreciate your assistance in clarifying documentation. Please respond to the clarification below the line at the bottom and electronically sign. The CDI & [facility] Coding staff will review the response and follow-up if needed. Please note: Queries are made part of the Legal Health Record. If you have any questions, please contact the author of this message via ITS. Dr. Fabian Lockett Multiorgan System Failure (MOSF) is documented in the 02/27 Pulmonary consult with liver dysfunction and altered mental status in the EC notes with anoxic brain injury documented in the 02/27 Event note. Is there a clinically appropriate diagnosis to further specify the liver dysfunction, altered mental status, and hypoxic brain injury? History/Risk Factors: Covid 19, HTN Clinical Indicators: Patient presented to EC in "extreme respiratory distress" with ARDS requiring Mechanical Ventilation, mottling, SASHA with ATN, AFib RVR requiring cardioversion, CVA, Lactic/metabolic/respiratory Acidosis, Cardiopulmonary arrest in EC, Covid 19 Sepsis. 02/26-02/27 Labs: Lactic Acid: 11.7/11.3/10.4/12.7, AST: 339/544/725, ALT: 82/127/145, LDH 4153 02/26/2021 Admission VS: HR 130, RR 40, B/P 120/58, Spo2 48% on Room Air 02/27 Code Blue Note: "CPR effort was stopped at that point, as this is patient second cardiopulmonary arrest, along with having severe COVID infection requiring mechanical ventilation with multiorgan failure. Outcomes would be very poor due to prolonged anoxic brain injury (patient was severely hypoxic during a prolonged ride by EMS to the hospital)." 02/27 Pulmonary Consult: "Further management in the intensive care unit revealed that the patient was still quite hypotensive, severely acidotic, hemodynamically unstable, and unresponsive essentially unresponsive. There was some liver dysfunction. The patient was critically ill with multisystem organ failure. Probably started off with COVID-19 related pneumonia and there was a superinfection with secondary septic shock and multisystem organ failure." Treatment: Cardioversion Bipap attempted, progressing to Intubation and Mechanical ventilation Left Femoral Central Line Placement for IV Levophed Gtt administration IV Decadron 10 mg IVP x 1 D5W w/ 3 Amps HCO3 @ 75 cc/hr. 02/26 1840 1L 0.9% NS IVF Bolus 02/27 0009 2L 0.9% NS IVF Bolus 02/27 Vasopressin Gtt .03 units/min In your professional opinion, can you please further specify the organ failure(s) monitored/treated during this admission? (More than one diagnosis may apply) [ ] Acute liver failure (please specify with or without coma) [ ] Acute Respiratory Distress Syndrome [ ] Metabolic Encephalopathy [ ] Anoxic Encephalopathy [ ] Other (please specify) [ ] Unable to determine [Template last reviewed: March 2020] Unable to determine MTDD
--- NOTE | 2021-03-03 14:45 | CDI ---
Documentation Clarification Form Date: 03/03/2021 02:23:40 PM From: Jennifer Salgado RN, CCDS Admit Date: 02/26/2021 05:50:00 PM Patient Name: Hernandez Ordoñez Visit Number: [id number] Discharge Date: 02/27/2021 09:08:00 AM ATTENTION: The Clinical Documentation Specialists (CDI) and [facility] Coding Staff appreciate your assistance in clarifying documentation. Please respond to the clarification below the line at the bottom and electronically sign. The CDI & [facility] Coding staff will review the response and follow-up if needed. Please note: Queries are made part of the Legal Health Record. If you have any questions, please contact the author of this message via ITS. Dr. Fabian Lockett CVA is documented in the 02/26 ED Note. Confirmation by the Attending MD regarding the CVA is requested. History/risk factors: Patient presented with hypoxia and altered mental status. Recent diagnosis of COVID 19 and HX of HTN Clinical Indicators 02/26 ED Note: "NEURO: Alert and oriented 2.Patient appears to have left-sided upper extremity and lower extremity weakness. There is no facial droop that is obvious. It is difficult to obtain a reliable neurological exam. Based on the left-sided weakness, NIH stroke scale is 4, 2 points each for some effort against gravity of the left upper and left lower extremity. Once again, neurological exam is difficult to obtain secondary to his current status. The left-sided weakness is in the obvious neurological deficit at this time. Limitations: altered mental status Cardiopulmonary arrest, COVID-19, Sepsis with acute hypoxic respiratory failure, Acidosis, metabolic, with respiratory acidosis, Elevated d-dimer, Renal failure, acute, Acute respiratory distress syndrome in adult, Airway intubation performed without difficulty, Bradycardia, Atrial fibrillation with RVR, Atrial fibrillation status post cardioversion, Pneumonia, CVA (cerebral vascular accident), Weakness, Lactic acidosis, Hypoxia, Hypercarbia." 02/26 CT Brain: Age-indeterminate hypoattenuation within the right basal ganglia and questionable of the right parietal lobe. Acute infarct cannot be excluded. Follow-up MRI may be obtained as clinically indicated. No acute intracranial hemorrhage. Treatment: Neurology Consulted, but did not see the patient before he Low Intensity IV Heparin Protocol Please clarify if you agree with the ED diagnosis of CVA. [ ] Acute CVA was POA (specify cause if known) [ ] Acute CVA ruled out [ ] Other (please specify) [ ] Unable to Determine (Template Last Revised: September 2020) Unable to determine MTDD
== END 2021-02-27 09:08 | disposition expired | DRG 871 ==
LOC: EC 15:50 → 2SICU 17:50
PROVIDERS: ADMIT Hospitalist; ATTEND Hospitalist
PROC: 5A2204Z Restoration of Cardiac Rhythm, Single (ICD-10-PCS; principal; 2021-02-26)
PROC: 5A09357 Assistance with Respiratory Ventilation, Less than 24 Consecutive Hours, Continuous Positive Airway Pressure (ICD-10-PCS; principal; 2021-02-26)
PROC: 0D9670Z Drainage of Stomach with Drainage Device, Via Natural or Artificial Opening (ICD-10-PCS; principal; 2021-02-26)
PROC: 5A1935Z Respiratory Ventilation, Less than 24 Consecutive Hours (ICD-10-PCS; principal; 2021-02-26)
PROC: 06HN33Z Insertion of Infusion Device into Left Femoral Vein, Percutaneous Approach (ICD-10-PCS; principal; 2021-02-26)
PROC: 5A12012 Performance of Cardiac Output, Single, Manual (ICD-10-PCS; principal; 2021-02-26)
PROC: 0BH17EZ Insertion of Endotracheal Airway into Trachea, Via Natural or Artificial Opening (ICD-10-PCS; principal; 2021-02-26)
PROC: 3E033XZ Introduction of Vasopressor into Peripheral Vein, Percutaneous Approach (ICD-10-PCS; 2021-02-26)
DX: A41.89 Other specified sepsis (principal); A40.3 Sepsis due to Streptococcus pneumoniae; I63.9 Cerebral infarction, unspecified; J96.01 Acute respiratory failure with hypoxia; N17.0 Acute kidney failure with tubular necrosis; J12.82 Pneumonia due to coronavirus disease 2019; R65.21 Severe sepsis with septic shock; U07.1 COVID-19; E87.4 Mixed disorder of acid-base balance; I46.8 Cardiac arrest due to other underlying condition; I49.01 Ventricular fibrillation; I48.91 Unspecified atrial fibrillation; R47.81 Slurred speech; K76.89 Other specified diseases of liver; I10 Essential (primary) hypertension; D72.810 Lymphocytopenia; R77.8 Other specified abnormalities of plasma proteins; E66.9 Obesity, unspecified; Z68.39 Body mass index [BMI] 39.0-39.9, adult; Z79.899 Other long term (current) drug therapy
CPT/HCPCS: 31500; 36415; 36556; 36600; 70450; 71045; 71275; 80053; 80306; 82805; 83605; 83615; 83735; 83880; 84484; 85025; 85379; 85610; 85730; 87040; 87070; 87077; 87186; 87205; 92950; 92960; 93005; 94002; 94003; 94640; 94660; 96374; 99291; 99292